=== PATIENT | female | born 1995 | race Caucasian/White ===

== ENCOUNTER 2018-07-24 20:33 | Emergency (ER) | payer BC ==
[~2018-07-24] VITALS: Ht 175.3 cm; Wt 65.9 kg
[2018-07-24 20:35] VITALS: TEMP 97.8
[2018-07-24 21:49] VITALS: BP 110/70; PULSE 66
== END 2018-07-24 21:50 | disposition home or self-care (01) ==
LOC: COL.ER 20:33
PROVIDERS: Emergency Medicine
DX: M25.572 Pain in left ankle and joints of left foot (principal)